=== PATIENT | male | born 1985 | race Caucasian/White ===

== ENCOUNTER 2022-10-15 09:37 | Emergency (ER) | payer MEDICAID ==
[~2022-10-15] VITALS: Ht 167.6 cm; Wt 68.9 kg
[2022-10-15 09:52] VITALS: BP_SYST 142
--- NOTE | 2022-10-15 10:00 | NUR ---
Patient to ER bed 04 to gown for evaluation. Side rails up.
--- NOTE | 2022-10-15 10:10 | NUR ---
PT C/O LEFT ANKLE INJURY AT HOME
[2022-10-15] MEDS ORDERED: MORPHINE 4 MG INJ. 4 MG/ML VIAL IM ONE (10:15)
[2022-10-15] MEDS ORDERED: TRAM50TA2 PO (11:12)
[2022-10-15] MEDS ORDERED: IBUP-1971 PO (11:12)
--- NOTE | 2022-10-15 11:39 | NUR ---
Patient given written and verbal discharge instructions and verbalizes understanding. ER MD discussed with patient the results and treatment provided. Patient in stable condition. Rx of given. Patient educated on pain management and to follow up with PMD. Pain Scale [0]. Opportunity for questions provided and answered. Medication side effect fact sheet provided.
== END 2022-10-15 11:35 | disposition home or self-care (01) ==
LOC: SED 09:37
DX: S82.842A Displaced bimalleolar fracture of left lower leg, initial encounter for closed fracture (principal); Z79.899 Other long term (current) drug therapy; W10.9XXA Fall (on) (from) unspecified stairs and steps, initial encounter; Y93.89 Activity, other specified; Y92.89 Other specified places as the place of occurrence of the external cause; Y99.8 Other external cause status
CPT/HCPCS: 99283